=== PATIENT | female | born 1990 | race African-American/Black ===

== ENCOUNTER 2017-04-25 03:52 | Emergency (ER) | payer BC, MEDICAID ==
[~2017-04-25] VITALS: Ht 177.8 cm; Wt 113.0 kg
[2017-04-25] MEDS ORDERED: KETOROLAC 30MG/ML VIAL IM ONE (06:45)
[2017-04-25] MEDS ORDERED: ONDANSETRON 4MG ODT PO ONE (06:45)
[2017-04-25 09:23] VITALS: BP 109/52
== END 2017-04-25 09:31 | disposition home or self-care (01) ==
LOC: ER 03:52
DX: S09.8XXA Other specified injuries of head, initial encounter (principal); S00.511A Abrasion of lip, initial encounter; Z87.891 Personal history of nicotine dependence; Y04.0XXA Assault by unarmed brawl or fight, initial encounter; Y93.89 Activity, other specified; Y92.89 Other specified places as the place of occurrence of the external cause
CPT/HCPCS: 70450; 70486; 81025; 96372; 99284; J1885; Q0162; Z7610